=== PATIENT | male | born 1975 | race Caucasian/White ===

== ENCOUNTER 2021-12-11 19:52 | Emergency (ER) | payer MEDICAID ==
[2021-12-11] MEDS ORDERED: Lactated Ringers 1,000 ML IV SCH (20:30)
[2021-12-11] MEDS ORDERED: HYDROmorphone 2 MG/ML SDV IVPUSH ONE (21:30)
[2021-12-11] MEDS ORDERED: Ketorolac 30 MG/ML SDV IVPUSH ONE (21:51)
[2021-12-12] MEDS ORDERED: Ondansetron 4 MG/2 ML SDV ONE (00:41)
[2021-12-12] MEDS ORDERED: LORazepam 2 MG/ML SDV ONE (00:41)
[2021-12-12] MEDS ORDERED: HYDROmorphone 2 MG/ML SDV ONE (00:41)
== END 2021-12-12 00:45 ==
LOC: LB.ED 19:52
DX: R10.84 Generalized abdominal pain (principal); Z72.0 Tobacco use; Z20.822 Contact with and (suspected) exposure to COVID-19
CPT/HCPCS: 36415; 74176; 80053; 83690; 85025; 86140; 96374; 96375; 99284-25; A0425; A0429; J1170; J1885; J7120; U0002